=== PATIENT | male | born 1990 | race Caucasian/White ===

== ENCOUNTER → 2017-05-30 | Outpatient (CLI) | payer OTHER ==
[~2017-05-30] MED LIST: OMNIPAQUE 350 MG/ML, 100ML BOTTLE ONE
== END | disposition home or self-care (01) ==
LOC: CFH 09:02
PROVIDERS: ATTEND Surgery
DX: E07.9 Disorder of thyroid, unspecified (principal)
CPT/HCPCS: 70491; Q9967

== ENCOUNTER → 2017-06-07 | Outpatient (CLI) | payer OTHER | END | disposition home or self-care (01) | LOC: CFH 16:19 | PROVIDERS: ATTEND Surgery | DX: E07.9 Disorder of thyroid, unspecified (principal) | CPT/HCPCS: 76536 ==

== ENCOUNTER → 2017-06-20 | Outpatient (CLI) | payer OTHER ==
[~2017-06-20] MED LIST changes: +LIDOCAINE 1%, 20ML ONE; -OMNIPAQUE 350 MG/ML, 100ML BOTTLE ONE
== END | disposition home or self-care (01) ==
LOC: RAD 09:46
PROVIDERS: ATTEND Surgery
DX: E07.9 Disorder of thyroid, unspecified (principal)
CPT/HCPCS: 76942; 88172; 88173; J3490

== ENCOUNTER → 2017-07-10 | Outpatient (CLI) | payer OTHER | END | disposition home or self-care (01) | LOC: RAD 08:33 | PROVIDERS: ATTEND Surgery | DX: E07.9 Disorder of thyroid, unspecified (principal) | CPT/HCPCS: 76942; J3490 ==

== ENCOUNTER → 2017-07-30 | Outpatient (CLI) | payer OTHER ==
[~2017-07-30] MED LIST changes: -LIDOCAINE 1%, 20ML ONE; +NONE PER PT
== END ==
LOC: STAR 08:43
PROVIDERS: ATTEND Surgery
DX: Z02.9 Encounter for administrative examinations, unspecified (principal)

== ENCOUNTER 2018-12-23 15:53 | Inpatient (IN) | payer MEDICAID, OTHER ==
[~2018-12-23] VITALS: Ht 180.3 cm; Wt 70.4 kg
--- NOTE | 2018-12-23 16:20 | NUR ---
PRESENTS VIA PD AFTER COWORKERS CALLED PATIENT MAKING THREATS TO SLIT WRISTS. PATIENT ADMITS TO MAKING SUCH THREATS. REPORTS 11 PRIOR SI ATTEMPTS. REPORTS TODAY'S CAUSE MULTI-FACTORIAL: NOT ALLOWED TO SEE DAUGHTER/ OVERWHELMING BILLS = RELAPSE (SMOKED METH ON SATURDAY) + GUILT FOR RELAPSE AND CONTINUED BEHAVIOR PREVENTING HIM FROM SEEING HIS CHILD. PD PROVIDED HEAD CHOPPER W/ PATIENT'S COMBAT KNIFE & COMBAT PEN.
--- NOTE | 2018-12-23 16:24 | NUR ---
PRESENTS VIA PD AFTER COWORKERS CALLED PATIENT MAKING THREATS TO SLIT WRISTS. PATIENT ADMITS TO MAKING SUCH THREATS. REPORTS 11 PRIOR SI ATTEMPTS. REPORTS TODAY'S CAUSE MULTI-FACTORIAL: NOT ALLOWED TO SEE DAUGHTER/ OVERWHELMING BILLS = RELAPSE (SMOKED METH ON SATURDAY) + GUILT FOR RELAPSE AND CONTINUED BEHAVIOR PREVENTING HIM FROM SEEING HIS CHILD. PD PROVIDED HOSPICE BEREAVEMENT COORDINATOR W/ PATIENT'S COMBAT KNIFE & COMBAT PEN. SI PRECAUTIONS IN PLACE
[2018-12-23 17:09] LABS: BASOPHILS # (AUTO) 0.04 x10^3/uL (0-0.1); BASOPHILS % (AUTO) 1 % (0-1); EOSINOPHILS # (AUTO) 0.27 x10^3/uL (0-0.4); EOSINOPHILS % (AUTO) 5 % (1-7); LYMPHOCYTES # (AUTO) 1.33 x10^3/uL (1-3.4); LYMPHOCYTES % (AUTO) 24 % (22-44); MD NO; MEAN CORPUSCULAR HGB CONC 33.8 g/dL (33.2-36.2); MEAN CORPUSCULAR VOLUME 85.9 fL (81-97); MEAN PLATELET VOLUME 9.6 fL (7.4-10.4); MONOCYTES # (AUTO) 0.34 x10^3/uL (0.2-0.8); MONOCYTES % (AUTO) 6 % (2-9); NEUTROPHILS # (AUTO) 3.51 x10^3/uL (1.8-6.8); NEUTROPHILS % (AUTO) 64 % (42-75); PLATELET COUNT 180 x10^3/uL (130-400); RED BLOOD COUNT 4.93 x10^6/uL (4.38-5.82)
[2018-12-23 17:13] LABS: ALBUMIN 4.1 g/dL (3.4-5.0); ANION GAP 6 mmol/L (5-15); CALCIUM 8.6 mg/dL (8.5-10.1); CHLORIDE 111 mmol/L (98-107)
[2018-12-23 17:16] LABS: ALANINE AMINOTRANSFERASE 34 U/L (12-78); ALKALINE PHOSPHATASE 101 U/L (45-117); BILIRUBIN,TOTAL 0.2 mg/dL (0.2-1.0)
[2018-12-23 17:18] LABS: ACETAMINOPHEN < 2 mcg/mL (10-30)
[2018-12-23 17:39] LABS: AMPHETAMINE SCREEN, URINE Positive (Negative); BARBITURATE SCREEN, URINE Negative (Negative); BENZODIAZEPINE SCREEN, URINE Negative (Negative); CANNABINOID SCREEN, URINE Negative (Negative); COCAINE SCREEN, URINE Negative (Negative); METHADONE SCREEN, URINE Negative (Negative); OPIATE SCREEN, URINE Negative (Negative)
--- NOTE | 2018-12-23 19:00 | NUR ---
REPORT FROM ARI MAGAÑA. PT RESTING. SITTER IN VIEW OF PT. PT HAS NO NEEDS AT THIS TIME.
--- NOTE | 2018-12-23 20:30 | NUR ---
PT SLEEPING. PHONE REMOVED AND PLACED WITH BELONGINS. VSS. PT HAS NO NEEDS AT THIS TIME. SITTER IN VIEW OF PT.
--- NOTE | 2018-12-23 21:34 | NUR ---
PT SLEEPING. EVEN RISE AND FALL OF CHEST OBSERVED. SITTER IN VIEW OF PT
--- NOTE | 2018-12-23 21:39 | NUR ---
MYAH RN: PACKET FAXED TO [facility]
--- NOTE | 2018-12-23 22:30 | NUR ---
PT SLEEPING WITH NO NEEDS AT THIS TIME. EVEN RISE AND FALL OF CHEST OBSERVED. SITTER AT VIEW OF PT.
--- NOTE | 2018-12-23 23:29 | NUR ---
ADMITTING MD AT BEDSIDE. PT HAS NO NEEDS AT THS TIME. SITTER IN VIEW OF PT.
[2018-12-23] MEDS ORDERED: ONDANSETRON ODT 4 MG PO PRN (23:30)
[2018-12-23] MEDS ORDERED: TEMAZEPAM 15 MG CAPSULE PO PRN (23:30)
[2018-12-23] MEDS ORDERED: DOCUSATE 100 MG CAPSULE PO PRN (23:30)
[2018-12-23] MEDS ORDERED: ACETAMINOPHEN 325 MG TABLET PO PRN (23:30)
--- NOTE | 2018-12-24 00:33 | NUR ---
PT SLEEPING. EVEN RISE AND FOLL OF CHEST OBSERVED. SITTER IN VIEW OF PT.
--- NOTE | 2018-12-24 01:30 | NUR ---
PT SLEEPING. EVEN RISE AND FALL OF CHEST OBSERVED. SITTER IN VIEW OF PT.
--- NOTE | 2018-12-24 02:30 | NUR ---
PT SLEEPING. EVEN RISE AND FALL OF CHEST OBSERVED. SITTER IN VIEW OF PT.
--- NOTE | 2018-12-24 04:03 | NUR ---
PT SLEEPING IN NAD. PT HAS NO NEEDS AT THIS TIME. SITTER IN VIEW OF PT.
--- NOTE | 2018-12-24 05:27 | NUR ---
PT SLEEPING IN NAD. SITTER IN VIEW OF PT.
--- NOTE | 2018-12-24 06:57 | NUR ---
received report from Monica. pt calmly laying on gurney sleeping, NAD with equal chest rise/fall, no needs at this time, pt remains in safe environment, sitter in view.
[2018-12-24] MEDS ORDERED: TRAZODONE 50MG TABLET PO PRN (08:00)
--- NOTE | 2018-12-24 08:04 | NUR ---
pt upright on [facility] awake, calm & cooperative, responds approp to staff, TRACY, pt given breakfast tray, no needs at this time, pt remains in safe environment, sitter in view. Addendum: 12/24/18 at 0819 by ESTEFANY pt upright on hospital bed awake, calm & cooperative, responds approp to staff, TRACY, pt given breakfast tray, no needs at this time, pt remains in safe environment, sitter in view.
[2018-12-24] MEDS ORDERED: ENOXAPARIN 40 MG/0.4 ML ONE (09:02)
[2018-12-24] MEDS: ENOXAPARIN 40 MG/0.4 ML SQ SCH (09:07)
--- NOTE | 2018-12-24 09:22 | NUR ---
pt calmly laying on hospital bed back to sleep after eating breakfast, NAD with equal chest rise/fall, no needs at this time, pt remains in safe environment, sitter in view.
--- NOTE | 2018-12-24 10:00 | NUR ---
report given to Elise MAGAÑA
--- NOTE | 2018-12-24 10:12 | NUR ---
REPORT RECEIVED FROM ARCHANA MALAVE. ASSUMED CARE OF PT. PT CURRENTLY SITTING ON [facility]. NAD NOTED. SKIN PWD. RESP EVEN AND EQAUL. PT DENIES NEEDS AT THIS TIME. GARAGE DOORS DOWN IN ROOM. BELONGINGS IN LOCKED LOCKER. SITTER AT DOORSIDE.
--- NOTE | 2018-12-24 11:15 | NUR ---
REPORT RECEIVED FROM ARCHANA MALAVE. ASSUMED CARE OF PT. PT CURRENTLY SITTING ON [facility]. NAD NOTED. SKIN PWD. RESP EVEN AND EQAUL. PT DENIES NEEDS AT THIS TIME. GARAGE DOORS DOWN IN ROOM. BELONGINGS IN LOCKED LOCKER. SITTER AT DOORSIDE.
--- NOTE | 2018-12-24 12:00 | NUR ---
REPORT TO ARCHANA RUSH WHO ASSUMED CARE OF PT.
--- NOTE | 2018-12-24 12:20 | NUR ---
Patient is resting comfortably in bed. CAP REFILL <3 SECONDS. EQUAL CHEST RISE AND NADN. SITTER OUTSIDE ROOM FOR CONTINOUS MONITORING.
--- NOTE | 2018-12-24 13:09 | NUR ---
Patient is resting comfortably in bed. CAP REFILL <3 SECONDS. EQUAL CHEST RISE AND NADN. SITTER OUTSIDE ROOM FOR CONTINOUS MONITORING.
[2018-12-24] MEDS ORDERED: NICOTINE 21 MG/24 HR PATCH.TD24 ONE (13:13)
--- NOTE | 2018-12-24 13:15 | NUR ---
Nicotiene patch applied for comfort.
[2018-12-24] MEDS ORDERED: NICOTINE 21 MG/24 HR PATCH.TD24 TD ONE (13:30)
--- NOTE | 2018-12-24 15:24 | NUR ---
Patient is resting comfortably in bed. CAP REFILL <3 SECONDS. EQUAL CHEST RISE AND NADN. SITTER OUTSIDE ROOM FOR CONTINOUS MONITORING.
--- NOTE | 2018-12-24 16:20 | NUR ---
Patient is resting comfortably in bed. CAP REFILL <3 SECONDS. EQUAL CHEST RISE AND NADN. SITTER OUTSIDE ROOM FOR CONTINOUS MONITORING.
--- NOTE | 2018-12-24 17:50 | NUR ---
Patient is resting comfortably in bed. CAP REFILL <3 SECONDS. EQUAL CHEST RISE AND NADN. SITTER OUTSIDE ROOM FOR CONTINOUS MONITORING.
--- NOTE | 2018-12-24 18:20 | NUR ---
Provided with meal tray. No other needs.
--- NOTE | 2018-12-24 20:18 | NUR ---
Patient is resting comfortably in bed. CAP REFILL <3 SECONDS. EQUAL CHEST RISE AND NADN. SITTER OUTSIDE ROOM FOR CONTINOUS MONITORING.
--- NOTE | 2018-12-24 20:56 | NUR ---
Patient is resting comfortably in bed. CAP REFILL <3 SECONDS. EQUAL CHEST RISE AND NADN. SITTER OUTSIDE ROOM FOR CONTINOUS MONITORING.
--- NOTE | 2018-12-24 23:19 | NUR ---
Patient is resting comfortably in bed. CAP REFILL <3 SECONDS. EQUAL CHEST RISE AND NADN. SITTER OUTSIDE ROOM FOR CONTINOUS MONITORING.
--- NOTE | 2018-12-25 00:10 | NUR ---
REPORT RECEIVED FROM ARCHANA RUSH. ASSUMED CARE OF PT. PT SLEEPING ON HOSPITAL BED IN NAD. SITTER OUTSIDE DOOR MONITORING PT. ROOM REMAINS SECURE, WILL CONTINUE TO MONITOR.
--- NOTE | 2018-12-25 01:52 | NUR ---
PT SLEEPING, RESPIRATIONS EVEN AND UNLABORED. ROOM REMAINS SECURE, SITTER OUTSIDE DOOR, WILL CONTINUE TO MONITOR.
--- NOTE | 2018-12-25 03:36 | NUR ---
PT SLEEPING, RESPIRATIONS EVEN AND UNLABORED. ROOM REMAINS SECURE AND SITTER OUTSIDE DOOR MONITORING PT
--- NOTE | 2018-12-25 05:01 | NUR ---
PT SLEEPING, RESPIRATIONS EVEN AND UNLABORED. ROOM REMAINS SECURE, SITTER OUTSIDE DOOR.
--- NOTE | 2018-12-25 06:35 | NUR ---
PT SLEEPING, RESPIRATIONS EVEN AND UNLABORED. ROOM REMAINS SECURE. SITTER OUTSIDE DOOR, WILL CONTINUE TO MONITOR.
--- NOTE | 2018-12-25 07:17 | NUR ---
RECEIVED REPORT FROM MARCO ANTONIO LU RN. PT RESTING ON [facility]. NADN. LOVETER REMAINS AT BEDSIDE. ROOM REMAINS SECURE.
[2018-12-25] MEDS ORDERED: ENOXAPARIN 40 MG/0.4 ML ONE (08:03)
[2018-12-25] MEDS: ENOXAPARIN 40 MG/0.4 ML SQ SCH (08:04)
--- NOTE | 2018-12-25 08:08 | NUR ---
PT PROVIDED W/ SI BREAKFAST MEAL TRAY. PT RESTING IN BED. NADN. VSS. PT MEDICATED PER DEC. SITTER REMAINS AT BEDSIDE. ROOM REMAINS SECURE.
--- NOTE | 2018-12-25 08:49 | NUR ---
REPORT GIVEN TO ARCHANA HIGH.
--- NOTE | 2018-12-25 09:17 | NUR ---
Pt resting in bed NAD.
[2018-12-25] MEDS ORDERED: LORazepam 1MG TABLET PO PRN (11:00)
--- NOTE | 2018-12-25 11:00 | NUR ---
SPOKE W/ DR. NEWBERRY IN REGARDS TO NEED FOR PRN MED FOR PT. NEW ORDER FOR ATIVAN 1 MG PO Q8H PRN.
[2018-12-25 11:56] VITALS: BP 134/78
[2018-12-25 19:05] VITALS: BP 141/82
[2018-12-26 07:41] VITALS: BP 121/71
[2018-12-26] MEDS: ENOXAPARIN 40 MG/0.4 ML SQ SCH (08:17)
[2018-12-26] MEDS: NICOTINE 21 MG/24 HR PATCH.TD24 TD SCH (12:02)
[2018-12-26 20:00] VITALS: BP 144/87
[2018-12-27 07:27] VITALS: BP 128/77
[2018-12-27] MEDS: ENOXAPARIN 40 MG/0.4 ML SQ SCH (08:00)
[2018-12-27 09:46] LABS: CREATININE 0.74 mg/dL (0.7-1.3)
[2018-12-27] MEDS: NICOTINE 21 MG/24 HR PATCH.TD24 TD SCH (12:24)
[2018-12-27 19:15] VITALS: BP 129/77
[2018-12-28 06:41] LABS: CREATININE 0.96 mg/dL (0.7-1.3)
[2018-12-28 07:34] VITALS: BP 110/71
[2018-12-28] MEDS: ENOXAPARIN 40 MG/0.4 ML SQ SCH (08:00)
[2018-12-28] MEDS: NICOTINE 21 MG/24 HR PATCH.TD24 TD SCH (08:32)
[2018-12-28 20:12] VITALS: BP 130/82
[2018-12-28] MEDS: MIRTAZAPINE 15 MG TABLET PO SCH (20:28)
[2018-12-29 07:48] VITALS: BP 126/84
[2018-12-29] MEDS: ENOXAPARIN 40 MG/0.4 ML SQ SCH (07:52)
[2018-12-29] MEDS: NICOTINE 21 MG/24 HR PATCH.TD24 TD SCH (08:44)
[2018-12-29 19:10] VITALS: BP 122/75
[2018-12-29] MEDS: MIRTAZAPINE 15 MG TABLET PO SCH (20:23)
[2018-12-30 07:45] VITALS: BP 125/78
[2018-12-30] MEDS: ENOXAPARIN 40 MG/0.4 ML SQ SCH (08:46)
[2018-12-30] MEDS: NICOTINE 21 MG/24 HR PATCH.TD24 TD SCH (08:47)
[2018-12-30 20:00] VITALS: BP 119/70
[2018-12-30] MEDS: MIRTAZAPINE 15 MG TABLET PO SCH (20:01)
[2018-12-31 05:51] LABS: CREATININE 0.78 mg/dL (0.7-1.3)
[2018-12-31 07:25] VITALS: BP 120/68
[2018-12-31] MEDS: ENOXAPARIN 40 MG/0.4 ML SQ SCH (08:20)
[2018-12-31] MEDS: NICOTINE 21 MG/24 HR PATCH.TD24 TD SCH (08:36)
[2018-12-31 19:43] VITALS: BP 127/71
[2018-12-31] MEDS: MIRTAZAPINE 15 MG TABLET PO SCH (20:41)
[2019-01-01 08:00] VITALS: BP 120/77
[2019-01-01] MEDS: ENOXAPARIN 40 MG/0.4 ML SQ SCH ×2 (08:00→08:35)
[2019-01-01] MEDS: NICOTINE 21 MG/24 HR PATCH.TD24 TD SCH (08:40)
== END 2019-01-01 11:10 | disposition home or self-care (01) | DRG 605 ==
LOC: ED 17:07 → EDIP 19:57 → 2N 12-25 11:22
PROVIDERS: ADMIT Family Medicine; ATTEND Family Medicine
DX: S61.519A Laceration without foreign body of unspecified wrist, initial encounter (principal); F33.2 Major depressive disorder, recurrent severe without psychotic features; X78.8XXA Intentional self-harm by other sharp object, initial encounter; E89.0 Postprocedural hypothyroidism; F10.10 Alcohol abuse, uncomplicated; F17.210 Nicotine dependence, cigarettes, uncomplicated; Y93.89 Activity, other specified; Y92.89 Other specified places as the place of occurrence of the external cause; Y99.8 Other external cause status
CPT/HCPCS: 36415; 80053; 80307; 80329; 82565; 85025; 96372; 99285; G0378; J1650; G0480